=== PATIENT | female | born 1995 | race Caucasian/White ===

== ENCOUNTER 2018-12-30 21:34 | Emergency (ER) | payer MEDICAID ==
[~2018-12-30] VITALS: Ht 170.2 cm; Wt 77.2 kg
[2018-12-30 21:40] VITALS: BP 135/71
[2018-12-30] MEDS ORDERED: triamcinolone acetonide 40mg/ml inj IM ONE (21:50)
== END 2018-12-30 22:02 | disposition home or self-care (01) ==
LOC: ER 21:35
DX: L23.7 Allergic contact dermatitis due to plants, except food (principal); Z88.0 Allergy status to penicillin
CPT/HCPCS: 96372; 99283; J3301